=== PATIENT | female | born 1960 | race Asian ===

== ENCOUNTER → 2017-03-13 | Outpatient (CLI) | payer OTHER ==
[~2017-03-13] MED LIST: ASPI81TA28 PO; ATOR-22 PO; B-CO1CAP17 PO; CALC500C70 PO; FLAXOIL2 PO; LISI-788 PO; LUTE15CA PO; MULT-513 PO
--- NOTE | 2017-03-17 15:07 | MAMMOGRAPHY REPORT ---
BILATERAL DIGITAL SCREENING MAMMOGRAM TOMOSYNTHESIS WITH CAD: 03/13/2017 CLINICAL HISTORY: Routine screening. TECHNIQUE: Breast tomosynthesis in addition to standard 2D mammography was performed. Current study was also evaluated with a Computer Aided Detection (CAD) system. COMPARISON: Prior mammograms from [facility] dated 11/01/2008, 11/03/2009, 11/05/2010, 09/2011, 05/13/2013. BREAST COMPOSITION: The tissue of both breasts is heterogeneously dense, which may obscure small mas ses. FINDINGS: There is a 4.4 mm nodular asymmetry in the far posterior slightly inferior left breast, pr ojecting over the pectoralis muscle on the MLO view, thought to project laterally based on the CC vie w. This is increasingly conspicuous comparing to prior outside exams. Although this could represent normal overlapping fibroglandular tissue, or a fluctuating cyst, additional spot compression tomosyn thesis, exaggerated lateral CC tomosynthesis views and possible ultrasound are recommended. There is a stable ribbon-shaped biopsy marker clip in the upper outer quadrant of the right breast. A few benign rim calcifications in the breasts. No other suspicious mass, architectural distortion or cluster of microcalcifications is seen. IMPRESSION: ACR BI-RADS CATEGORY 0: INCOMPLETE EVALUATION: NEED ADDITIONAL IMAGING EVALUATION The 4.4 mm nodular asymmetry in the far posterior left breast needs additional evaluation. The patient will be called to schedule an appointment. Approximately 10% of breast cancers are not detected with mammography. A negative mammographic report should not delay biopsy if a clinically suggestive mass is present. Elizabeth Villanueva M.D. ay/:03/17/2017 13:48:37 Daycare Director: Radha REID(Tu)(Mary), [facility] letter sent: Addl Imaging 0 BI-RADS Code: ACR BI-RADS Category 0: Incomplete Evaluation: Need Additional Imaging Evaluation
== END | disposition home or self-care (01) ==
LOC: C.MAMM 14:12
PROVIDERS: ATTEND Family Medicine
DX: Z12.31 Encounter for screening mammogram for malignant neoplasm of breast (principal); N64.89 Other specified disorders of breast

== ENCOUNTER → 2017-03-21 | Outpatient (CLI) | payer OTHER ==
--- NOTE | 2017-03-21 15:08 | MAMMOGRAPHY REPORT ---
UNILATERAL LEFT DIGITAL DIAGNOSTIC MAMMOGRAM TOMOSYNTHESIS AND TARGETED LEFT ULTRASOUND: 03/21/2017 CLINICAL HISTORY: Callback from screening mammogram for left breast asymmetry. TECHNIQUE: Breast tomosynthesis in addition to standard 2D mammography was performed. Spot compress ion left MLO and cc 2-D and tomosynthesis images were obtained. COMPARISON: Comparison is made to exams dated: 03/13/2017 mammogram - [facility], 05/13/2013 mammogram, 05/15/2011 ultrasound, 05/15/2011 mammogram, 11/23/2010 ultrasound, and 11/23/2010 mammog linda - [facility]. BREAST COMPOSITION: The tissue of the left breast is heterogeneously dense, which may obscure small masses. FINDINGS: Spot compression views demonstrate a round circumscribed 5 mm mass within the left superio r posterior breast on the MLO view, shown to be located laterally based on the tomosynthesis localize r bar. Targeted ultrasound was performed of the left upper outer quadrant in the region of the mammographic mass. In the left breast at 1:00, 7 cm from the nipple, there is an oval circumscribed anechoic mass which measures 5 x 2 mm. This corresponds with the mammographic mass and is consistent with a benig n simple cyst. IMPRESSION: ACR BI-RADS CATEGORY 2: BENIGN, TARGETED ULTRASOUND ACR BI-RADS CATEGORY 2: BENIGN The mammographic mass corresponds with a benign 5 mm simple cyst in the left 1:00 breast on ultrasoun d. There is no mammographic or targeted sonographic evidence of malignancy. A 1 year screening mammo gram is recommended. The patient has been verbally notified of the results. Approximately 10% of breast cancers are not detected with mammography. A negative mammographic report should not delay biopsy if a clinically suggestive mass is present. Akilah Whelan M.D. /:03/21/2017 09:55:56 Packing And Shipping Clerk: Marysol Ledesma, [facility] letter sent: Normal 1/2 BI-RADS Code: ACR BI-RADS Category 2: Benign Ultrasound BI-RADS: ACR BI-RADS Category 2: Benign
== END | disposition home or self-care (01) ==
LOC: C.MAMM 09:26
PROVIDERS: ATTEND Family Medicine
DX: N63.21 Unspecified lump in the left breast, upper outer quadrant (principal)

== ENCOUNTER → 2017-10-02 | Outpatient (CLI) | payer OTHER ==
--- NOTE | 2017-10-02 20:54 | PULMONARY FUNCTION TEST ---
Spirometry and flow volume loops are normal.
== END | disposition home or self-care (01) ==
LOC: C.RC 10:52
PROVIDERS: ATTEND Student in an Organized Health Care Education/Training Program
DX: Z82.5 Family history of asthma and other chronic lower respiratory diseases (principal); J06.9 Acute upper respiratory infection, unspecified; J04.0 Acute laryngitis